=== PATIENT | male | born 1965 | race Caucasian/White ===

== ENCOUNTER 2019-01-17 08:54 | Day surgery (SDC) | payer OTHER ==
[~2019-01-17] VITALS: Ht 190.5 cm; Wt 115.6 kg
[~2019-01-17 08:54] MED LIST: ATACAND HCT PO; ATEN100 PO; Ciloxan5 ML RIGHTEYE; GEMF600 PO; HYDCHL12.5 PO; Omeprazole20 M1 PO; PIRO10 PO; SILD50TA PO
[2019-01-17] MEDS ORDERED: GEMF600 PO (09:36)
[2019-01-17] MEDS ORDERED: LO-DOSE ASPIRIN81 MG PO (09:37)
--- NOTE | 2019-01-17 09:50 | NUR ---
01/17/19 0950 Renu Thapa V PT RESTING IN BED, SIDE RAILS IN PLACE, CALL LIGHT WITHIN REACH, VSS. PT TEACHING COMPLETED. PT DENIES PAIN, DISCOMFORT AND QUESTIONS AT THIS TIME.
--- NOTE | 2019-01-17 12:21 | NUR ---
01/17/19 1221 Lora House INSTRUCTED TO NOT TALK OR WHISPER FOR 48 HOURS. PATIENT INSTRUCTED TO NOD OR SHAKE HEAD OR WRITE NOTES. PATIENT CONTINUES TO TALK.
== END 2019-01-17 12:25 | disposition home or self-care (01) ==
LOC: ORSCSDS 08:54
PROVIDERS: Otolaryngology
PROC: 0CDV8ZZ Extraction of Left Vocal Cord, Via Natural or Artificial Opening Endoscopic (ICD-10-PCS; principal; 2019-01-17 10:15)
DX: J38.1 Polyp of vocal cord and larynx (principal); I10 Essential (primary) hypertension; J44.9 Chronic obstructive pulmonary disease, unspecified; F17.210 Nicotine dependence, cigarettes, uncomplicated; K21.9 Gastro-esophageal reflux disease without esophagitis; Z79.899 Other long term (current) drug therapy
CPT/HCPCS: 88305; J0330; J1100; J1885; J2250; J2405; J2704; J2710; J3010; J7120

== ENCOUNTER 2022-03-20 08:11 | Emergency (ER) | payer OTHER ==
[~2022-03-20] VITALS: Ht 190.5 cm; Wt 120.2 kg
[~2022-03-20 08:11] MED LIST changes: +LO-DOSE ASPIRIN81 MG PO
== END 2022-03-20 10:16 | disposition home or self-care (01) ==
LOC: ER 08:11
DX: M79.651 Pain in right thigh (principal); M79.605 Pain in left leg; I10 Essential (primary) hypertension
CPT/HCPCS: 99283